=== PATIENT | male | born 1950 ===

== ENCOUNTER 2017-04-08 06:44 | Day surgery (SDC) | payer MEDICARE, BC ==
[2017-04-05 12:40] VITALS: BMI 25.4
[2017-04-08] MEDS ORDERED: Iodixanol 320 mg/ml 150 ml Bottle IV ONE (06:56)
[2017-04-08] MEDS ORDERED: Iodixanol 320 MG/ML 200 ML BOTTLE IV ONE (06:56)
[2017-04-08 07:25] LABS: BASO # 0.03 K/mm3 (0.0-2.0); BASO % 0.3 % (0.0-3.0); EOS # 0.4 (0.0-0.7); EOS % 4.8 % (1.5-5.0); GRAN # 6.47 (1.4-6.5); GRAN % 70.5 % (50.0-68.0); HEMATOCRIT 36.6 % (42.0-52.0); LYMPH # 1.6 (1.2-3.4); LYMPH % 17.6 % (22.0-35.0); MEAN CELL VOLUME 96.1 fl (80.0-105.0); MEAN CORPUSCULAR HEMOGLOBIN 32.5 pg (25.0-35.0); MEAN CORPUSCULAR HGB CONC 33.9 g/dl (31.0-37.0); MEAN PLATELET VOLUME 11.1 fl (7.0-11.0); MONO # 0.6 (0.1-0.6); MONO % 6.8 % (1.0-6.0); WHITE BLOOD COUNT 9.2 10^3/ul (4.5-11.0)
[2017-04-08] MEDS ORDERED: Nitroglycerin 50mg in D5W 50 MG/250 ML BOTTLE IV ONE (07:25)
[2017-04-08] MEDS ORDERED: Lidocaine 2% Inj (20ml) ONE (07:25)
[2017-04-08 07:35] LABS: INR 1.1 (0.93-1.08); PARTIAL THROMBOPLASTIN TIME 28.1 Seconds (23.7-30.8)
[2017-04-08 07:47] LABS: CALCIUM 8.8 mg/dL (8.4-10.5)
[2017-04-08 08:01] LABS: POTASSIUM 5.6 mmol/L (3.6-5.0)
--- NOTE | 2017-04-08 08:03 | CP.SDSHP ---
Same Day Surgery H & P - History Proposed Procedure: Femoral Angiogram Pre-Op Diagnosis: PVD - Previous Medical/Surgical History Cardiac: Hypertension, ASHD/CAD (S/P CABG in 2013), PVD (has claudication, gangrene L 5th toe since 3 weeks) Pulmonary: Smoking (Smoked ! PPD x 20 years,gave up many years ago.) Endocrine/Metabolic: Diabetes (Has neuropathy and retinopathy), Renal Disease ( ESRD on HD) Misc: Other (Dry gangrene noted on L 5th toe,high cholesterol) Pain: 6.Severe Pain (in the L 5th toe) Previous Surgical History: CABG. Creation of AV fistula in the L upper arm. Cateract surgery - Allergies Allergies: Allergies No Known Allergies Allergy (Verified 02/08/14 14:21) - Physical Exam General Appearance: Well nourished male Mental Status: Alert & Oriented x3 Neuro: WNL Heart: WNL Lungs: WNL - {Optional Preform as Required} Abdomen: WNL Integument: Other (Dry gangrene of L 5th toe) Other Pertinent Findings: DP and PT pulses felt by Doppler on both sides. AV shunt noted in the L upper arm.Bruit +,Thrill+. - Impression Impression: PVD. Dry gangrene L 5th toe. ESRD on Hemodialysis - Date & Time Date: 04/08/17 Time: 08:03 Short Stay Discharge - Short Stay Discharge Admitting Diagnosis/Reason for Visit: I70.262/N18.6 Disposition: HOME/ ROUTINE Referrals: Reno Toscano MD [Primary Care Provider] -
[2017-04-08] MEDS ORDERED: Midazolam 2 MG/2 ML VIAL ONE (08:05)
[2017-04-08] MEDS ORDERED: Oxycodone/Acetaminophen 5/325 mg Tab PO PRN (09:59)
[2017-04-08 11:10] VITALS: RESP 20
[2017-04-08 12:59] VITALS: TEMP 97.8; O2SAT 98
[2017-04-08 13:17] VITALS: BP 158/60; PULSE 68
--- NOTE | 2017-04-08 16:09 | VASCULAR ---
PROCEDURE: 1. Abdominal aortogram and bilateral lower extremity runoff with left selective views. 2. Left anterior tibial artery CS I atherectomy and balloon angioplasty 3. Terminal left SFA and above knee popliteal artery jet stream atherectomy and drug-eluting balloon angioplasty HISTORY: Severe peripheral vascular disease. Diabetes. End-stage renal disease. Gangrene left 5th toe. PHYSICIAN(S): Jean Starr M.D. TECHNIQUE: The relative risks and indications of the procedure were explained to the patient and consent obtained. The patient was placed supine on the arteriogram table and the right groin prepped and draped in the usual sterile fashion. Conscious sedation and monitoring were provided throughout the procedure by a nurse. Via a right common femoral artery approach, a 5 [place] sheath was placed in the right groin. Through the sheath and over a guidewire, a 5 [place] flush catheter was placed in the abdominal aorta at the level of the renal arteries and a PA DSA abdominal aortogram performed. The catheter was pulled down to the aortic bifurcation and bilateral oblique DSA pelvic arteriograms performed. Overlapping bilateral lower extremity DSA arteriograms were obtained from the inguinal ligaments to the feet. A 0.035 angled Glidewire was advanced over the bifurcation and placed in the distal left SFA. A 7 [place] 65 cm destination sheath was placed in the distal left SFA. Heparin 5000 units IV and nitroglycerin in 250 mcg aliquots were given. The short segment calcified occlusion in the left popliteal artery above the knee was crossed with a wildcat catheter. Next the calcified long segment disease in the left anterior tibial artery was crossed with 0.035 and 0.018 guidewires. Exchange is made for 0.017 Viper support wire in the left dorsalis pedis artery. CS I atherectomy of the left anterior tibial artery was performed with 1.25 micro [place]. Antegrade flow was re-established. The pro mole to mid left anterior tibial artery was dilated with 2.5/3 0.0 x 210 mm tapered balloon. An excellent angiographic result was obtained. Jet stream atherectomy of the terminal left SFA and above knee popliteal artery was performed with a 2.4/3.4 catheter. Next the left popliteal artery above the knee was dilated with 5 mm x 150 mm drug-eluting balloon. Finely the terminal left SFA and above knee popliteal artery was dilated with a 6.0 by 150 angioplasty balloon. An excellent angiographic result was obtained in two views and no stent was required. The sheath was removed and hemostasis obtained with a Perclose device. The patient tolerated the procedure well. FINDINGS: There are single renal arteries bilaterally with atrophic kidneys consistent with dialysis. The infrarenal abdominal aorta is calcified and patent. Aortic bifurcation is patent. The common iliac arteries are calcified but patent. The external iliac arteries are patent without radiographically significant stenosis. The internal iliac arteries are patent bilaterally. Right lower extremity: The right common femoral artery is patent. The right profunda femoral artery is patent. The right superficial femoral artery is smoothly calcified without radiographically significant stenosis. The right popliteal artery above the knee is patent. There is severe right trifurcation and tibial occlusive disease. There is 1 vessel runoff via the right posterior tibial artery. The right anterior tibial and peroneal arteries are occluded. Left lower extremity: Left common femoral artery is patent with mild calcified posterior plaque.. The left profunda femoral artery is patent. The left superficial femoral artery is diffusely calcified without a radiographically significant stenosis. There is a 3 cm occlusion of the left popliteal artery above the knee. Multiple additional stenoses are present. The terminal left popliteal artery is diseased but patent. There is severe left trifurcation and tibial occlusive disease. The primary runoff is the left peroneal artery. The left anterior tibial artery is severely diseased with numerous long segment stenoses. The left dorsalis pedis artery is patent. The left plantar arch is occluded. There is significant pedal occlusive disease.. IMPRESSION: 1.Successful long segment left anterior tibial artery CS I atherectomy and angioplasty 2. Successful terminal left SFA and above knee popliteal jet stream atherectomy and drug-eluting balloon angioplasty 3. Severe bilateral trifurcation, tibial, and pedal occlusive disease.
== END 2017-04-08 13:35 | disposition home or self-care (01) ==
LOC: SDSVAS 06:44
PROVIDERS: ATTEND Radiology Vascular & Interventional Radiology
DX: I70.262 Atherosclerosis of native arteries of extremities with gangrene, left leg (principal); E11.52 Type 2 diabetes mellitus with diabetic peripheral angiopathy with gangrene; N18.6 End stage renal disease; E11.22 Type 2 diabetes mellitus with diabetic chronic kidney disease; I12.0 Hypertensive chronic kidney disease with stage 5 chronic kidney disease or end stage renal disease; E11.319 Type 2 diabetes mellitus with unspecified diabetic retinopathy without macular edema; E11.40 Type 2 diabetes mellitus with diabetic neuropathy, unspecified; I25.10 Atherosclerotic heart disease of native coronary artery without angina pectoris; Z99.2 Dependence on renal dialysis; Z95.1 Presence of aortocoronary bypass graft; Z87.891 Personal history of nicotine dependence
CPT/HCPCS: 36415; 37225; 37229; 75625; 75716; 80048; 85025; 85610; 85730; 99152; 99153; C1714; C1725 ×5; C1760 ×2; C1769 ×4; C1884; C1887 ×3; C1894; J1644 ×2; J2250; J2405; J3010